=== PATIENT | male | born 1995 | race Caucasian/White ===

== ENCOUNTER → 2023-03-28 | Outpatient (CLI) | payer OTHER, SELFPAY ==
[2023-03-28 15:25] LABS: Absolute Lymphocyte Count 2.09 X10^3/uL (0.83-4.51); Absolute Neutrophil Count 4.1 X10^3/uL (2.0-7.7); Basophil# 0.06 X10^3/uL; Basophil% 0.9 % (0-1); Eosinophil# 0.18 X10^3/uL; Eosinophils% 2.6 % (0-5); Hematocrit 47.2 % (40-54); Hemoglobin 15.9 g/dL (13.0-16.5); Lymphocyte # 2.09 X10^3/ul (0.83-4.51); Lymphocyte % 30.1 % (19-41); Mean Corp Hgb Conc 33.7 g/dL (32-36); Mean Corpuscular Hgb 30.2 pg (27.0-32.0); Mean Corpuscular Volume 89.6 fL (80-94); Mean Platelet Vol. 9.5 fl (6.2-12.0); Monocyte# 0.45 X10^3/uL; Monocyte% 6.5 % (0-10); NRBC Flagged by Analyzer 0 % (0-5); Neutrophil # 4.12 X10^3/uL (2.7-7.7); Neutrophil % 59.2 % (47-70); Platelet Count 301 K/mm3 (150-450); RBC Distribution Width CV 11.9 % (11.6-14.6); RBC Distribution Width SD 39.1 fl (35.1-43.9); Red Blood Count 5.27 M/mm3 (4.6-6.2)
[2023-03-28 15:53] LABS: AST(SGOT) 43 U/L (15-37); Alanine Aminotransfer ALT/SGPT 131 U/L (16-61); Albumin, Serum 4.1 g/dL (3.2-5.0); Alkaline Phosphatase 129 U/L (45-117); Anion Gap 4 (5-15); BUN 15 mg/dL (7-18); BUN/Creat Ratio 14.3 RATIO (10-20); Calcium,Total 9.7 mg/dL (8.5-10.1); Chloride 105 mmol/L (98-107); Creatinine, Serum 1.05 mg/dL (0.70-1.30); EST Glomerular Filtration Rate 90 mL/min (>60); Est Glom Filt Rate - Afr Amer 109 mL/min (>60); Glucose 98 mg/dL (74-106); Potassium 4.7 mmol/L (3.5-5.1); Protein, Total 8.1 g/dL (6.4-8.2); Sodium Level 138 mmol/L (136-145); Thyroid Stim Hormone (TSH) 1.09 uIU/mL (0.358-3.74)
[2023-03-28 18:15] LABS: Syphilis Antibodies Non-reactive
[2023-03-29 11:50] LABS: Ferritin 99 ng/mL (26-388); GGTP 91 U/L (15-85); Lipase 23 U/L (13-75)
[2023-03-29 13:16] LABS: Hepatitis C Antibody Non-Reactive (Nonreactive)
[2023-03-31 11:09] LABS: ANTINUCLEAR ANTIBODIES DIRECT Negative (Negative)
[2023-03-31 15:08] LABS: Endomysial Antibody IgA Negative (Negative); Immunoglobulin A 193 mg/dL (90-386); t-Transglutaminase IgA <2 U/mL (0-3)
== END | disposition home or self-care (01) ==
LOC: MFPLAB 11:58
PROVIDERS: PCP Family Medicine; Visit Provider Family Medicine
DX: R56.9 Unspecified convulsions (principal)
CPT/HCPCS: 36415; 80053; 82728; 82784; 82977; 83516; 83690; 84443; 85025; 86038; 86255; 86780; 86803

== ENCOUNTER → 2023-04-06 | Outpatient (CLI) | payer OTHER, SELFPAY ==
--- NOTE | 2023-04-06 07:23 | US_ITS ---
STUDY: ABDOMINAL ULTRASOUND - RIGHT UPPER QUADRANT REASON FOR VISIT: Male, 27 years old elevated LFTs TECHNIQUE: Ultrasound evaluation of the right upper quadrant was performed with real-time and static yarbrough-scale imaging. TECHNICAL QUALITY: Adequate. COMPARISON: None. FINDINGS: Liver: The liver measures 14.3 cm. There is increased echogenicity consistent with fatty infiltration. The bile ducts are within normal limits. There is hepatic color flow. The direction of portal flow is hepatopetal. There is no demonstrated mass lesion. Gallbladder: Normal distended gallbladder. The gallbladder wall measures 3 mm. There is a negative sonographic Thurman''s sign. There is no pericholecystic fluid. There are no gallstones. Common Bile Duct (C.B.D.): The common bile duct measures 3 mm. Pancreas: Normal size of the head, body and tail of the pancreas. There is normal echogenicity of the pancreas. There is no demonstrated pancreatic mass or cyst. Right Kidney: Normal size of the right kidney. The right kidney measures 10.7 x 5.8 x 5.4 cm. Normal renal cortex. The right cortex measures 1.7 cm. There is no demonstrated renal mass or cyst. There is no right hydronephrosis. US/Abdomen Limited IMPRESSION: Fatty liver, no discrete lesion Electronically Signed: Matias Shepherd MD at 11:05 EST ,
--- NOTE | 2023-04-06 07:34 | CT_ITS ---
STUDY: CT BRAIN WITH AND WITHOUT CONTRAST REASON FOR EXAM: Male, 27 years old. Migraine headache with possible seizure RADIATION DOSAGE (If Supplied By Facility): CTDIvol = ( 44.99 ) mGy, DLP = ( 1648.46 ) mGycm TECHNIQUE: Transaxial CT imaging of the brain was performed pre and post contrast administration. The examination was performed with intravenous administration of 50ML ISOVUE 370. Individualized dose optimization techniques were used for this CT. COMPARISON: None. FINDINGS: Normal soft tissue structures. Normal calvarium. Normal size ventricles and extra-axial spaces for the patient''s age. Normal white matter tracts of the cerebral hemispheres. Normal basal ganglia and thalami. Normal brainstem. Normal cerebellum. There is no intracranial hemorrhage. There are no findings of an acute ischemic infarction. Normal visualized paranasal sinuses. No suspicious enhancing lesion after contrast administration CT/Brain/Head W/WO Contrast IMPRESSION: Normal unenhanced and enhanced CT scan of the brain. Electronically Signed: Matias Shepherd MD at 8:26 EST ,
== END | disposition home or self-care (01) ==
LOC: CT 07:22
PROVIDERS: PCP Family Medicine; Referring Provider Family Medicine; Visit Provider Family Medicine
DX: R51.9 Headache, unspecified (principal); R56.9 Unspecified convulsions
CPT/HCPCS: 70470; 76705; Q9967

== ENCOUNTER → 2024-07-17 | Outpatient (CLI) | payer OTHER, SELFPAY ==
[2024-07-17 15:35] LABS: Hematocrit 45.3 % (40-54); Mean Corp Hgb Conc 35.3 g/dL (32-36); Mean Corpuscular Hgb 30.9 pg (27.0-32.0); Mean Corpuscular Volume 87.5 fL (80-94); Platelet Count 282 K/mm3 (150-450); RBC Distribution Width CV 12.1 % (11.6-14.6); RBC Distribution Width SD 38.5 fl (35.1-43.9); Red Blood Count 5.18 M/mm3 (4.6-6.2); White Blood Count 9.2 K/mm3 (4.4-11.0)
[2024-07-17 16:27] LABS: ALB/GLOB Ratio 1.2 RATIO (0.9-2.4); AST(SGOT) 48 U/L (15-37); Alanine Aminotransfer ALT/SGPT 85 U/L (16-61); Albumin, Serum 4.4 g/dL (3.2-5.0); Alkaline Phosphatase 107 U/L (45-117); Anion Gap 9 (5-15); BUN 10 mg/dL (7-18); BUN/Creat Ratio 10.5 RATIO (10-20); Calcium,Total 9.8 mg/dL (8.5-10.1); Chloride 105 mmol/L (98-107); Creatinine, Serum 0.96 mg/dL (0.70-1.30); EST Glomerular Filtration Rate 100 mL/min (>60); Est Glom Filt Rate - Afr Amer 121 mL/min (>60); Globulin 3.7 g/dL (2.2-4.2); Glucose 94 mg/dL (74-106); Magnesium 2.6 mg/dL (1.6-2.6); Potassium 4.3 mmol/L (3.5-5.1); Protein, Total 8.1 g/dL (6.4-8.2); Sodium Level 140 mmol/L (136-145); Thyroid Stim Hormone (TSH) 0.582 uIU/mL (0.358-3.740)
== END | disposition home or self-care (01) ==
LOC: MTLAB 12:48
PROVIDERS: PCP Family Medicine; Referring Provider Psychiatry & Neurology Neurology; Visit Provider Psychiatry & Neurology Neurology
DX: G40.909 Epilepsy, unspecified, not intractable, without status epilepticus (principal)
CPT/HCPCS: 36415; 80053; 83735; 84443; 85027

== ENCOUNTER → 2024-07-19 | Outpatient (CLI) | payer OTHER, SELFPAY | END | disposition home or self-care (01) | PROVIDERS: PCP Family Medicine; Referring Provider Family Medicine; Visit Provider Family Medicine | DX: R56.9 Unspecified convulsions (principal) | CPT/HCPCS: 95819 ==

== ENCOUNTER → 2025-02-03 | Outpatient (CLI) | payer OTHER, SELFPAY ==
[2025-02-03 19:02] LABS: Ammonia 13.7 umol/L (16-60)
[2025-02-03 19:46] LABS: AST(SGOT) 49 U/L (<=37); Alanine Aminotransfer ALT/SGPT 114 U/L (<=46); Albumin, Serum 4.7 g/dL (3.5-5.0); Alkaline Phosphatase 104 U/L (40-129); Anion Gap 14 (5-15); BUN 11 mg/dL (4-19); BUN/Creat Ratio 10.4 RATIO (10-20); Calcium,Total 10.1 mg/dL (7.6-11.0); Carbon Dioxide 25.6 mmol/L (21.0-32.0); Chloride 100 mmol/L (98-108); Globulin 2.7 g/dL (2.2-4.2); Glucose 93 mg/dL (70-99); Potassium 4.6 mmol/L (3.3-5.1)
--- OUTSIDE RECORDS SUMMARY | 2025-02-03 22:05 | XMS RPT_ITS | CCD ---
Author Organization [facility] Care Team Providers Care Director Of Construction Name Role Phone Dwight Corona Referring Unavailable Dwight Corona Attending Unavailable Gigi Dean Primary Care Unavailable Gigi Dean Referring Unavailable Gigi Dean Attending Unavailable Gigi Dean Primary Care Unavailable Dwight Corona Attending Unavailable Gigi Dean Referring Unavailable Gigi Dean Primary Care Unavailable Jermaine LIM, Dr. Yu Primary Care Provider Jermaine LIM, Dr. Yu Referring Provider Cj LIM, Dr. Quintanilla Attending Provider Cj LIM, Dr. Quintanilla Referring Provider Jermaine LIM, Dr. Yu Attending Provider [phone] Jermaine LIM, Dr. Yu Primary Care Provider Jermaine LIM, Dr. Yu Referring Provider Cj LIM, Dr. Quintanilla Attending Provider Cj LIM, Dr. Quintanilla Referring Provider [phone] Allergies Allergy Classification Reported Allergen(s) Allergy Type Date of Onset Reaction(s) Facility (3 sources) Amoxicillin Drug Allergy 10-07-2016 Vomiting [facility] (1 source) Amoxicillin Drug Allergy 07-17-2024 [facility] Repository Medications Current Medications Medication Drug Class(es) Dates Sig (Normalized) Sig (Original) cetirizine hydrochloride 10 mg oral tablet (1 source) Histamine-1 Receptor Antagonist Start: 02-03-2025 take 1 tablet by mouth once daily as needed Cetirizine (All Day Allergy (Cetirizine)) 10 mg tablet Active 10 mg PO daily as needed February 03, 2025 12:00am levETIRAcetam 500 mg oral tablet (3 sources) Start: 02-03-2025 take 1 tablet by mouth twice daily Levetiracetam 500 mg tablet Active 500 mg PO TWICE A DAY 60 5 February 03, 2025 3:01pm Start: 07-17-2024 End: 02-03-2025 take 0.5 tablet by mouth twice daily, then take 1 tablet by mouth twice daily Levetiracetam 500 mg tablet Discontinued 500 mg PO .COMPLEX 60 5 July 17, 2024 1:00am February 03, 2025 3:02pm Take 1/2 tablet orally twice daily for 2 days then 1 tablet twice daily thereafter. Completed/Discontinued Medications Medication Drug Class(es) Dates Sig (Normalized) Sig (Original) acetaminophen 325 mg / HYDROcodone bitartrate 5 mg oral tablet (3 sources) Opioid Agonist Start: 10-12-2016 End: 07-17-2024 Hydrocodone-Acetami nophen 1 TABLET tablet Discontinued 1 {tbl} PO EVERY 6 HOURS NEEDED as needed for Pain October 12, 2016 12:00am July 17, 2024 11:59am Start: 10-12-2016 take 1 tablet by maximo th every six hours as needed Hydrocodone-Acetaminophen Active 1 TABLE T PO EVERY 6 HOURS NEEDED October 11, 2016 11:00pm Problems Problem Classification Problem Date Documented Da te Episodic/Chronic Epilepsy; convulsions (5 sources) Epilepsy, unspecified, not intractable, without status epilepticus; Translations: [Epilepsy] Onset: 07-30-2024 07-17-2024 Chronic Epilepsy; convulsions (1 source) Unspecified convulsions; Translations: [Unspecified convulsions] Onset: 08-01-2024 Episodic Results Test Name Value Interpretation Reference Range Facility Albumin to globulin ratioOrd ered By: Dwight Corona on 07-17-2024 Albumin/Globulin [Mass ratio] 1.2 {ratio} 0.9-2.4 [facility] Bilirubin, totalOrdered By: Dwight Corona on 07-17-2024 Bilirubin [Mass/Vol] 1.40 mg/dL High 0.20-1.00 [facility] Comment on above: For patients on eltr ombopag therapy, use of Dimension [place] TBIL is not recommended. Blood urea nitrogen (BUN)/cr eatinine ratioOrdered By: Dwight Corona on 07-17-2024 Urea nitrogen/Creatinine [Mass ratio] 10.5 mg/mg 10-20 [facility] CBC-Complete Blood Cnt No Di ffon 07-17-2024 Erythrocyte distribution width (RBC) [Ratio] 12.1 % Normal 11.6-14.6 [facility] Comment on above: Performed By: #### L 501.5200, L501.9520, L100.0500, L500.4050 #### [facility] [address] [place], [address] Hematocrit (Bld) [Volume fraction] 45.3 % Normal 40-54 [facility] Comment on above: Performed By: #### L 501.5200, L501.9520, L100.0500, L500.4050 #### [facility] [address] [place], [address] Hemoglobin (Bld) [Mass/Vol] 16.0 g/dL Normal 13.0-16.5 [facility] Comment on above: Performed By: #### L 501.5200, L501.9520, L100.0500, L500.4050 #### [facility] [address] [place], [address] MCH (RBC) [Entitic mass] 30.9 pg Normal 27.0-32.0 [facility] Comment on above: Performed By: #### L 501.5200, L501.9520, L100.0500, L500.4050 #### [facility] [address] [place], [address] MCHC (RBC) [Mass/Vol] 35.3 g/dL Normal 32-36 [facility] Comment on above: Performed By: #### L 501.5200, L501.9520, L100.0500, L500.4050 #### [facility] [address] [place], [address] MCV (RBC) [Entitic vol] 87.5 fL Normal 80-94 [facility] Comment on above: Performed By: #### L 501.5200, L501.9520, L100.0500, L500.4050 #### [facility] [address] [place], [address] Platelet mean volume (Bld) [Entitic vol] 10.0 fL Normal 6.2-12.0 [facility] Comment on above: Performed By: #### L 501.5200, L501.9520, L100.0500, L500.4050 #### [facility] [address] [place], [address] Platelets (Bld) [#/Vol] 282 10*3/uL Normal 150-450 [facility] Comment on above: Performed By: #### L 501.5200, L501.9520, L100.0500, L500.4050 #### [facility] [address] [place], [address] RBC (Bld) [#/Vol] 5.18 10*6/uL Normal 4.6-6.2 [facility] Comment on above: Performed By: #### L 501.5200, L501.9520, L100.0500, L500.4050 #### [facility] [address] [place], [address] RDW SD 38.5 fl Normal 35.1-43.9 [facility] Comment on above: Performed By: #### L 501.5200, L501.9520, L100.0500, L500.4050 #### [facility] [address] [place], [address] WBC (Bld) [#/Vol] 9.2 10*3/uL Normal 4.4-11.0 [facility] Comment on above: Performed By: #### L 501.5200, L501.9520, L100.0500, L500.4050 #### [facility] [address] [place], [address] Carbon dioxide measurementOr dered By: Dwight Corona on 07-17-2024 CO2 [Moles/Vol] 26.0 mmol/L 21.0-32.0 [facility] Chloride measurementOrdered By: Dwight Corona on 07-17-2024 Chloride [Moles/Vol] 105 mmol/L 98-107 [facility] Comprehensive Metabolic Prof ilon 07-17-2024 Albumin [Mass/Vol] 4.4 g/dL Normal 3.2-5.0 [facility] Comment on above: Performed By: #### L 501.5200, L501.9520, L100.0500, L500.4050 #### [facility] [address] [place], [address] Albumin/Globulin [Mass ratio] 1.2 {ratio} Normal 0.9-2.4 [facility] Comment on above: Performed By: #### L 501.5200, L501.9520, L100.0500, L500.4050 #### [facility] [address] [place], [address] ALK P 107 U/L Normal 45-117 [facility] Comment on above: Performed By: #### L 501.5200, L501.9520, L100.0500, L500.4050 #### [facility] [address] [place], [address] ALT [Catalytic activity/Vol] 85 U/L High 16-61 [facility] Comment on above: Performed By: #### L 501.5200, L501.9520, L100.0500, L500.4050 #### [facility] [address] [place], [address] AST [Catalytic activity/Vol] 48 U/L High 15-37 [facility] Comment on above: Performed By: #### L 501.5200, L501.9520, L100.0500, L500.4050 #### [facility] [address] [place], [address] Bilirubin [Mass/Vol] 1.40 mg/dL High 0.20-1.00 [facility] Comment on above: Result Comment: For patients on eltrombopag therapy, use of Dimension [place] TBIL is not recommended. Performed By: #### L 501.5200, L501.9520, L100.0500, L500.4050 #### [facility] [address] [place], [address] BUN/CRE 10.5 RATIO Normal 10-20 [facility] Comment on above: Performed By: #### L 501.5200, L501.9520, L100.0500, L500.4050 #### [facility] [address] [place], [address] CA,Total 9.8 mg/dL Normal 8.5-10.1 [facility] Comment on above: Performed By: #### L 501.5200, L501.9520, L100.0500, L500.4050 #### [facility] [address] [place], [address] Chloride [Moles/Vol] 105 mmol/L Normal 98-107 [facility] Comment on above: Performed By: #### L 501.5200, L501.9520, L100.0500, L500.4050 #### [facility] [address] [place], [address] CO2 [Moles/Vol] 26.0 mmol/L Normal 21.0-32.0 [facility] Comment on above: Performed By: #### L 501.5200, L501.9520, L100.0500, L500.4050 #### [facility] [address] [place], [address] Creatinine [Mass/Vol] 0.96 mg/dL Normal 0.70-1.30 [facility] Comment on above: Result Comment: The validity of the calculated GFR GFRAA in patients over 70 years has not been determined. Clinical correlation is essential. Performed By: #### L 501.5200, L501.9520, L100.0500, L500.4050 #### [facility] [address] [place], [address] EST GFR - AA 121 mL/min Normal >60 [facility] Comment on above: Result Comment: Afri can Samoan GFR Calc Performed By: #### L 501.5200, L501.9520, L100.0500, L500.4050 #### [facility] [address] [place], [address] GAP 9 Normal 5-15 [facility] Comment on above: Performed By: #### L 501.5200, L501.9520, L100.0500, L500.4050 #### [facility] [address] [place], [address] GFR/1.73 sq M.predicted among non-blacks MDRD (S/P/Bld) [Vol rate/Area] 100 mL/min/{1.73_m2} Normal >60 [facility] Comment on above: Result Comment: Non- GFR Calc Performed By: #### L 501.5200, L501.9520, L100.0500, L500.4050 #### [facility] [address] [place], [address] Globulin (S) [Mass/Vol] 3.7 g/dL Normal 2.2-4.2 [facility] Comment on above: Performed By: #### L 501.5200, L501.9520, L100.0500, L500.4050 #### [facility] [address] [place], [address] Glucose [Mass/Vol] 94 mg/dL Normal 74-106 [facility] Comment on above: Performed By: #### L 501.5200, L501.9520, L100.0500, L500.4050 #### [facility] [address] [place], [address] Potassium [Moles/Vol] 4.3 mmol/L Normal 3.5-5.1 [facility] Comment on above: Performed By: #### L 501.5200, L501.9520, L100.0500, L500.4050 #### [facility] [address] [place], [address] Sodium [Moles/Vol] 140 mmol/L Normal 136-145 [facility] Comment on above: Performed By: #### L 501.5200, L501.9520, L100.0500, L500.4050 #### [facility] [address] [place], [address] T PROT 8.1 g/dL Normal 6.4-8.2 [facility] Comment on above: Performed By: #### L 501.5200, L501.9520, L100.0500, L500.4050 #### [facility] [address] [place], [address] Urea nitrogen [Mass/Vol] 10 mg/dL Normal 7-18 [facility] Comment on above: Performed By: #### L 501.5200, L501.9520, L100.0500, L500.4050 #### [facility] [address] [place], [address] Erythrocyte distribution wid th ratioOrdered By: Dwight Corona on 07-17-2024 Erythrocyte distribution width (RBC) [Ratio] 12.1 % 11.6-14.6 [facility] Erythrocyte distribution wid th standard deviationOrdered By: Dwight Corona on 07-17-2024 Erythrocyte distribution width (RBC) [Entitic vol] 38.5 fL 35.1-43.9 [facility] Estimated glomerular filtrat ion rate (GFR) AmericanOrdered By: Dwight Corona on 07-17-2024 Estimated GFR (MDRD) Amer 121 mL/min >60 [facility] Comment on above: GFR Calc Glomerular filtration rate ( GFR) estimationOrdered By: Dwight Corona on 07-17-2024 Estimated GFR (MDRD) Non-Af Amer 100 mL/min >60 [facility] Comment on above: Non- GFR Calc Glucose measurementOrdered B y: Dwight Corona on 07-17-2024 Glucose [Mass/Vol] 94 mg/dL 74-106 [facility] Hematocrit Auto (Bld) [Volum e fraction]Ordered By: Dwight Corona on 07-17-2024 Hematocrit (Bld) [Volume fraction] 45.3 % 40-54 [facility] Hemoglobin measurementOrdere d By: Dwight Corona on 07-17-2024 Hemoglobin (Bld) [Mass/Vol] 16.0 g/dL 13.0-16.5 [facility] - Chemistry and C hemistry - challengeOrdered By: Dwight Corona on 07-17-2024 AST [Catalytic activity/Vol] 48 U/L High 15-37 [facility] MCV (mean corpuscular volume ) determinationOrdered By: Dwight Corona on 07-17-2024 MCV (RBC) [Entitic vol] 87.5 fL 80-94 [facility] Magnesiumon 07-17-2024 Magnesium [Mass/Vol] 2.6 mg/dL Normal 1.6-2.6 [facility] Comment on above: Performed By: #### L 501.5200, L501.9520, L100.0500, L500.4050 #### [facility] [address] [place], [address] Magnesium measurementOrdered By: Dwight Corona on 07-17-2024 Magnesium [Mass/Vol] 2.6 mg/dL 1.6-2.6 [facility] Mean corpuscular hemoglobin (MCH) determinationOrdered By: Dwight Corona on 07-17-2024 MCH (RBC) [Entitic mass] 30.9 pg 27.0-32.0 [facility] Mean corpuscular hemoglobin concentration (MCHC) determinationOrdered By: Dwight Corona on 07-17-2024 MCHC (RBC) [Mass/Vol] 35.3 g/dL 32-36 [facility] Mean platelet volume determi nationOrdered By: Dwight Corona on 07-17-2024 Platelet mean volume (Bld) [Entitic vol] 10.0 fL 6.2-12.0 [facility] Neurology Visit Reporton Neurology Visit Report [facility] [address], [address] [place] [address] OFFICE VISIT Date of Service: 07/17/24 MR#: [id number] Acct: [id number] Name: BETTINA WEBSTER Rep #: [id number] : 1995 Provider: Dr. Dwight florence MD Age/Sex: 29/M Location: [facility] Status: Signed with Addenda ADDENDUM by Dr. Dwight Corona MD on 07/17/24 at 1417 Addendum Addendum (07/17/2024): The patient's second generalized seizure was witnessed to last for 1 to 2 minutes. 07/17/24 1417 Date Dwight Corona MD cc: Dr. Gigi Dean MD * Signed HPI [facility] Chief Complaint: Establish Care Details: History: The patient is a 29-year-old right-handed male without significant past medical history who presents for evaluation of seizures. He has a history of excessive alcohol consumption and was drinking 3 to 4 cans of beer per day for a 2-year. Following a 1 week period of not drinking alcohol in 2022, he had a generalized clonic seizure without preceding aura. He had postictal confusion and lethargy. Apart from the possibility of alcohol withdrawal, apparently no other direct cause for his seizure was identified. A head CT was normal. Anticonvulsant therapy was not initiated at that time. He quit drinking alcohol in early 2023. He had a second generalized clonic seizure on 07/12/2024. He did not experience a preceding aura. He had postictal confusion and lethargy. He did not have tongue biting or urinary incontinence with either of his seizures. He had muscle soreness following his last seizure. He experienced a mild headache associated with his last seizure. He does not have any significant history of headaches otherwise. He did not have any vision change, hearing loss, dizziness, numbness or lateralizing weakness. He does not have any history of concussion or CAR PORTER infection. He does not have any significant history. He was not born prematurely. He was under some emotional stress during the time of his last seizure. No clear etiology is identified. Past Medical History: As above. There is no history of hypertension, diabetes mellitus, heart disease, lung disease, stroke, thyroid disease, cancer, renal disease, sleep apnea, or hyperlipidemia. Social History: He uses marijuana (he states his last use of marijuana was 1 month ago. There is no history of heroin, cocaine, or narcotic abuse. He has a history of excessive alcohol consumption. He drinks 3 to 4 cans of beer daily for 2 years. He quit drinking alcohol in early 2023. There is no history of smoking tobacco. He has a law degree. Family History: The patient's sister was born prematurely and has epilepsy. The patient's grandfather had a TIA. There is no family history of cerebral aneurysm. Review of Systems: As above. The patient has not had any recent fever, rash, weight change, chest pain, shortness of breath, gastrointestinal problems or urinary problems. He has depression. He denies anxiety or sleep disturbance. Physical Exam: General: Well-developed, well-nourished male in no acute distress. Neuro: The patient is awake and alert and responds appropriately; speech is fluent; language function is within normal limits Cranial nerves: PERRL, 4mm bilaterally; EOMI; visual contreras are full; visual acuity is 20/20 bilaterally; face is symmetrical; tongue is midline; there are no deficits to pinprick Cerebellar system: No nystagmus or dysmetria Deep tendon reflexes: +2 knees and ankles, +1 at the triceps bilaterally and right brachioradialis and absent at the left brachioradialis and biceps bilaterally; plantar responses are downward bilaterally Motor: Strength 5/5 in the biceps bilaterally, abductor pollicis brevis muscles bilaterally, first dorsal interosseous muscles bilaterally, quadriceps bilaterally and foot dorsiflexors bilaterally; no drift Sensory: There are no deficits to soft touch, vibration or pinprick Gait: Unremarkable; Romberg is negative HEENT: Normocephalic; atraumatic; tympanic membranes are clear Neck: No bruits Heart: Regular rhythm and rate Extremities: No cyanosis or edema; dorsalis pedis pulses are +2 bilaterally Supplemental Info CBC, CMP, JOSE, GGT, TSH (03/28/2023): AST 43 (high), ALT 131 (high), GGT 91 (high), alkaline phosphatase 129 (high) Head CT (04/06/2023): Normal unenhanced and enhanced CT scan of the brain. These images were reviewed on 07/17/2024. Assessment and Plan Assessment and Plan (1) Epilepsy: Status: Acute Orders: Orders Brain W/WO Contrast Today G40.909 - Epilepsy, unspecified, not intractable, without status epilepticus Thyroid Stim Hormone (TSH) Today G40.909 - Epilepsy, unspecified, not intractable, without status epilepticus Comprehensive Metabolic Profil Today G40.909 - Epilepsy, unspecified, not intractable, without status ep (more content not included)... Normal [facility] Platelet countOrdered By: Ra jean-pierre Corona on 07-17-2024 Platelets (Bld) [#/Vol] 282 10*3/uL 150-450 [facility] Potassium measurementOrdered By: Dwight oCrona on 07-17-2024 Potassium [Moles/Vol] 4.3 mmol/L 3.5-5.1 [facility] RBC Auto (Bld) [#/Vol]Ordere d By: Dwight Corona on 07-17-2024 RBC (Bld) [#/Vol] 5.18 10*6/uL 4.6-6.2 [facility] Serum anion gap measurementO rdered By: Dwight Corona on 07-17-2024 Anion gap [Moles/Vol] 9 mmol/L 5-15 [facility] Serum globulin measurementOr dered By: Dwight Corona on 07-17-2024 Globulin (S) [Mass/Vol] 3.7 g/dL 2.2-4.2 [facility] Serum or plasma alanine helm otransferase (ALT) measurementOrdered By: Dwight Corona on 07-17-2024 ALT [Catalytic activity/Vol] 85 U/L High 16-61 [facility] Serum or plasma albumin ramandeep urement (mass/volume)Ordered By: Dwight Corona on 07-17-2024 Albumin [Mass/Vol] 4.4 g/dL 3.2-5.0 [facility] Serum or plasma alkaline maryse sphatase measurementOrdered By: Dwight Corona on 07-17-2024 ALP [Catalytic activity/Vol] 107 U/L 45-117 [facility] Serum or plasma calcium ramandeep urement (mass/volume)Ordered By: Dwight Corona on 07-17-2024 Calcium [Mass/Vol] 9.8 mg/dL 8.5-10.1 [facility] Serum or plasma creatinine m easurement (mass/volume)Ordered By: Dwight Corona on 07-17-2024 Creatinine [Mass/Vol] 0.96 mg/dL 0.70-1.30 [facility] Comment on above: The validity of the calculated GFR & GFRAA in patients over 70 years has not been determined. Clinical correlation is essential. Serum or plasma urea nitroge n measurement (mass/volume)Ordered By: Dwight Corona on 07-17-2024 Urea nitrogen [Mass/Vol] 10 mg/dL 7-18 [facility] Sodium levelOrdered By: Aditya Corona on 07-17-2024 Sodium [Moles/Vol] 140 mmol/L 136-145 [facility] TSH QnOrdered By: Dwight farnsworth on 07-17-2024 Thyroid Stimulating Hormone (TSH) 0.582 uIU/mL 0.358-3.740 [facility] Thyroid Stim Hormone (TSH)on 07-17-2024 TSH 0.582 uIU/mL Normal 0.358-3.740 [facility] Comment on above: Performed By: #### L 501.5200, L501.9520, L100.0500, L500.4050 #### [facility] [place] [address] [place], [address] Total proteinOrdered By: Tyrel Corona on 07-17-2024 Protein [Mass/Vol] 8.1 g/dL 6.4-8.2 [facility] White blood cell (WBC) count Ordered By: Dwight Corona on 07-17-2024 WBC (Bld) [#/Vol] 9.2 10*3/uL 4.4-11.0 [facility] Absolute lymphocyte countOrd ered By: Gigi Dean on 03-28-2023 Lymphocytes Auto (Unsp spec) [#/Vol] 2.09 10*3/uL 0.83-4.51 [facility] Basophil percentageOrdered B y: Gigi Dean on 03-28-2023 Basophils/100 WBC (Bld) 0.9 % 0-1 [facility] Bilirubin [Mass/Vol] 0.70 mg/dL 0.20-1.00 [facility] Comment on above: For patients on eltr ombopag therapy, use of Dimension [place] TBIL is not recommended. Chloride [Moles/Vol] 105 mmol/L 98-107 [facility] Eosinophils/100 WBC (Bld) 2.6 % 0-5 [facility] Glucose [Mass/Vol] 98 mg/dL 74-106 [facility] Neutrophils (Bld) [#/Vol] 4.1 10*3/uL 2.0-7.7 [facility] Neutrophils/100 WBC (Bld) 59.2 % 47-70 [facility] Potassium [Moles/Vol] 4.7 mmol/L 3.5-5.1 [facility] Protein [Mass/Vol] 8.1 g/dL 6.4-8.2 [facility] Sodium [Moles/Vol] 138 mmol/L 136-145 [facility] WBC (Bld) [#/Vol] 7.0 10*3/uL 4.4-11.0 [facility] Blood erythrocytes count (nu mber/volume)Ordered By: Gigi Dean on 03-28-2023 RBC (Bld) [#/Vol] 5.27 10*6/uL 4.6-6.2 [facility] Blood hemoglobin measurement (mass/volume)Ordered By: Gigi Dean on 03-28-2023 Hemoglobin (Bld) [Mass/Vol] 15.9 g/dL 13.0-16.5 [facility] Blood lymphocytes/100 leukoc ytesOrdered By: Gigi Dean on 03-28-2023 Lymphocytes/100 WBC (Bld) 30.1 % 19-41 [facility] Blood monocytes/100 leukocyt esOrdered By: Gigi Dean on 03-28-2023 Monocytes/100 WBC (Bld) 6.5 % 0-10 [facility] Blood platelet mean volumeOr dered By: Gigi Dean on 03-28-2023 Platelet mean volume (Bld) [Entitic vol] 9.5 fL 6.2-12.0 [facility] Determination of erythrocyte mean corpuscular volume (MCV)Ordered By: Gigi Dean on 03-28-2023 MCV (RBC) [Entitic vol] 89.6 fL 80-94 [facility] Hematocrit Auto (Bld) [Volum e fraction]Ordered By: Gigi Dean on 03-28-2023 Hematocrit (Bld) [Volume fraction] 47.2 % 40-54 [facility] - Chemistry and C hemistry - challengeOrdered By: Gigi Dean on 03-28-2023 ALP [Catalytic activity/Vol] 129 U/L 45-117 [facility] ALT [Catalytic activity/Vol] 131 U/L 16-61 [facility] Amylase [Catalytic activity/Vol] 91 U/L 15-85 [facility] CO2 [Moles/Vol] 29.0 mmol/L 21.0-32.0 [facility] Globulin (S) [Mass/Vol] 4.0 g/dL 2.2-4.2 [facility] Lipase [Catalytic activity/Vol] 23 U/L 13-75 [facility] Comment on above: Please note:LIPASE r evised reference range effective 22. New Lipase methodology. Expected to produce lower values than the previous assay method. NEW Reference Range: 13 - 75 U/L Urea nitrogen/Creatinine [Mass ratio] 14.3 mg/mg 10- [facility] Laboratory - Hematology and Cell countsOrdered By: Gigi Dean on 03-28-2023 Erythrocyte distribution width (RBC) [Entitic vol] 39.1 fL 35.1-43.9 [facility] Erythrocyte distribution width (RBC) [Ratio] 11.9 % 11.6-14.6 [facility] Immature granulocytes/100 WBC (Bld) 0.700 % 0.0-0.9 [facility] Comment on above: IG% - Immature Granu locytes (promyelocytes, myelocytes and metamyelocytes) > 1% indicates that a LEFT SHIFT is Present. MCH (RBC) [Entitic mass] 30.2 pg 27.0-32.0 [facility] Nucleated RBC/100 WBC (Bld) [Ratio] 0 % 0-5 [facility] MCHC Auto (RBC) [Mass/Vol]Or dered By: Gigi Dean on 03-28-2023 MCHC (RBC) [Mass/Vol] 33.7 g/dL 32- [facility] No Panel InformationOrdered By: Gigi Dean on 03-28-2023 Anti-Nuclear Antibody Screen Negative Negative [facility] Comment on above: Performed at: [facility] [employer] [place] [id number] Director: Adams Gaffney PhD, Phone: [phone] Endomysial IgA Antibody Negative Negative [facility] Estimated GFR (MDRD) Amer 109 mL/min >60 [facility] Comment on above: GFR Calc Estimated GFR (MDRD) Non-Af Amer 90 mL/min >60 [facility] Comment on above: Non- GFR Calc Hepatitis C Antibody Non-Reactive Nonreactive [facility] Comment on above: Non Reactive: < 0.8 Equivocal: >/= 0.8 to < 1.0 Reactive: >/= 1.0The CDC recommends that a reactive/equivocal HCV antibody result be followed up by the HCV Nucleic Acid Amplificationtest (812994) Thyroid Stimulating Hormone (TSH) 1.09 uIU/mL 0.358-3.74 [facility] Platelets bldOrdered By: Amanda Dean on 03-28-2023 Platelets (Bld) [#/Vol] 301 10*3/uL 150-450 [facility] Serum IgA measurement (units /volume)Ordered By: Gigi Dean on 03-28-2023 IgA Qn (S) 193 mg/dL 90-386 [facility] Comment on above: Performed at: [address] [id number] Director: Adams Gaffney PhD, Phone: [phone] Serum Treponema species anti body detectionOrdered By: Gigi Dean on 03-28-2023 Treponema sp Ab Ql (S) Non-Reactive [facility] Serum or plasma albumin ramandeep urement (mass/volume)Ordered By: Gigi Dean on 03-28-2023 Albumin [Mass/Vol] 4.1 g/dL 3.2-5.0 [facility] Serum or plasma albumin/glob ulin mass ratioOrdered By: Gigi Dean on 03-28-2023 Albumin/Globulin [Mass ratio] 1.0 {ratio} 0.9-2.4 [facility] Serum or plasma calcium ramandeep urement (mass/volume)Ordered By: Gigi Dean on 03-28-2023 Calcium [Mass/Vol] 9.7 mg/dL 8.5-10.1 [facility] Serum or plasma creatinine m easurement (mass/volume)Ordered By: Gigi Dean on 03-28-2023 Creatinine [Mass/Vol] 1.05 mg/dL 0.70-1.30 [facility] Comment on above: The validity of the calculated GFR & GFRAA in patients over 70 years has not been determined. Clinical correlation is essential. Serum or plasma ferritin kevin surement (mass/volume)Ordered By: Gigi Dean on 03-28-2023 Ferritin [Mass/Vol] 99 ng/mL 26-388 [facility] Serum or plasma urea nitroge n measurement (mass/volume)Ordered By: Gigi Dean on 03-28-2023 Urea nitrogen [Mass/Vol] 15 mg/dL 7-18 [facility] Serum tissue transglutaminas e IgA antibody assay (units/volume)Ordered By: Gigi Dean on 03-28-2023 tTG IgA Qn (S) <2 U/mL 0-3 [facility] Comment on above: Negative 0 - 3 Weak Positive 4 - 10 Positive >10 Tissue Transglutaminase (tTG) has been identified as the endomysial antigen. Studies have demonstr- ated that endomysial IgA antibodies have over 99% specificity for gluten sensitive enteropathy. Thin prep Papanicolaou smear with manual screeningOrdered By: Gigi Dean on 03-28-2023 Thin prep Papanicolaou smear with manual screening 43 U/L 15-37 [facility] Thin prep Papanicolaou smear with manual screening 4 5-15 [facility] Vital Signs Date Time Vital Sign Value Performing Clinician Faci lity 02-03-2025 14:24-0400 Body height 172.[address] Gigi Dean MD Work Phone: [phone] [place] [address] 02-03-2025 14:24-0400 Body mass index (BMI) [Ratio] 28.6 kg/m2 Dr. Gigi Dean MD Work Phone: [phone] [address] 02-03-2025 14:24-0400 Body temperature 98.6 [degF] Dr. Gigi Dean MD Work Phone: [phone])[phone] [place] [address] 02-03-2025 14:24-0400 Body weight 85.[address] Gigi Dean MD Work Phone: 1([phone])[phone] [place] [address] 02-03-2025 14:24-0400 Diastolic blood pressure 78 mm[Hg] Dr. Gigi Dean MD Work Phone: 2([phone])[phone] [place] [address] 02-03-2025 14:24-0400 Heart rate 63 /min Dr. Gigi Dean MD Work Phone: [facility] 02-03-2025 14:24-0400 Respiratory rate 16 /min Dr. Gigi Dean MD Work Phone: [facility] 02-03-2025 14:24-0400 SaO2% (BldA) [Mass fraction] 98 % Dr. Gigi Dean MD Work Phone: [facility] 02-03-2025 14:24-0400 Systolic blood pressure 124 mm[Hg] Dr. Gigi Dean MD Work Phone: 6([phone])[phone] [place] [address] 07-17-2024 10:54-0500 Body height 172.[address] Gigi Dean MD Work Phone: [facility] 07-17-2024 10:54-0500 Body mass index (BMI) [Ratio] 27.5 kg/m2 Dr. Gigi Dean MD Work Phone: [facility] 07-17-2024 10:54-0500 Body temperature 97.7 [degF] Dr. Gigi Dean MD Work Phone: [facility] 07-17-2024 10:54-0500 Body weight 82.[address] Gigi Dean MD Work Phone: [facility] 07-17-2024 10:54-0500 Diastolic blood pressure 84 mm[Hg] Dr. Gigi Dean MD Work Phone: [facility] 07-17-2024 10:54-0500 Heart rate 55 /min Dr. Gigi Dean MD Work Phone: [facility] 07-17-2024 10:54-0500 Respiratory rate 16 /min Dr. Gigi Dean MD Work Phone: [facility] 07-17-2024 10:54-0500 SaO2% (BldA) [Mass fraction] 99 % Dr. Gigi Dean MD Work Phone: [facility] 07-17-2024 10:54-0500 Systolic blood pressure 136 mm[Hg] Dr. Gigi Dean MD Work Phone: [facility] 03-28-2023 11:56-0400 Body height 169.55 cm [facility] Encounters Encounter Date Encounter Type Care Provider Facility Start: 02-03-2025 End: 02-03-[address] Gigi Dean MD Work Phone: -[facility] Start: 02-03-2025 End: 02-03-[address] Dwight Corona MD -[facility] Work Phone: Start: 07-19-2024 End: 07-19-[address] Gigi Dean MD Work Phone: [facility] Work Phone: Start: 07-19-2024 End: 07-19-[address] Gigi Dean MD -Pulmonary Services/Neurology Work Phone: Start: 07-19-2024 End: 07-19-2024 ambulatory Gigi Dean Facility:[facility] Start: 07-17-2024 End: 07-17-[address] Dwight Corona MD -Laboratory, [place] Work Phone: Start: 07-17-2024 End: 07-17-[address] Dwight Corona MD -[facility] Work Phone: Start: 07-17-2024 End: 07-17-2024 ambulatory [facility] Facility:[facility] Start: 07-17-2024 End: 07-17-2024 ambulatory [facility] Facility:[facility] Start: 03-28-2023 End: 03-28-2023 ambulatory [facility] Work Phone: Start: 03-28-2023 End: 03-28-2023 [facility] of Treatment Date Care Activity Detail Author Start: 02-03-2025 Blood ammonia measurement [facility] Start: 02-03-2025 Comprehensive metabo lic 2000 panel - Serum or Plasma [facility] Start: 02-03-2025 Measurement of substance [facility] Alanine aminotransfe rase [Enzymatic activity/volume] in Serum or Plasma [facility] Albumin [Mass/volume ] in Serum or Plasma [facility] Alkaline phosphatase [Enzymatic activity/volume] in Serum or Plasma [facility] Anion gap in Serum or Plasma [facility] Bilirubin, total measurement [facility] BUN/Creatinine ratio [facility] Calcium [Mass/volume ] in Serum or Plasma [facility] Carbon dioxide, tota l [Moles/volume] in Central venous blood [facility] Creatinine [Mass/vol ume] in Serum or Plasma [facility] Glucose [Mass/volume ] in Serum or Plasma [facility] Measurement of renal function [facility] MR Brain WO and W contrast IV [facility] Potassium measurement [facility] Serum chloride measurement [facility] Sodium measurement [facility] Total protein measurement [facility] Urea nitrogen [Mass/ volume] in Serum or Plasma [facility] Payers Date Payer Category Payer Self-pay 2016 Unknown [id number] Private Health Insurance [id number] Unknown [id number] Unknown [id number] Unknown [id number] Unknown [facility] PACKAGE PLAN [id number] Social History Date Type Detail Facility Start: 10-07-2016 Tobacco smoking stat us COIS Unknown if ever smoked [facility] Start: 1995 Sex Assigned At Male [facility] Start: 10-07-2016 End: 02-03-2025 Tobacco smoking status NHIS Never smoked tobacco (finding) [facility] Start: 08-01-2024 Sex Male (finding) [facility] Evaluation note 07-17-2024 Note Date & Type Note Facility 07-17-2024 Evaluation note Diagnosis Onset Date Resolution Epilepsy acute July 17, 2024 10:55am [facility] Work Phone: Evaluation note Note Date & Type Note Facility Evaluation note No assessment information availa ble [facility] Work Phone: Evaluation note Note Date & Type Note Facility Evaluation note Diagnosis Onset Date Resolution Epilepsy acute February 03, 2025 2:22pm [facility] Work Phone: Reason for referral (narrative) Note Date & Type Note Facility Reason for referral (narrative) No reason for referral information available [facility] Work Phone: Advance Directives Advance Directive Response Recorded Date/ Time Living Will No October 07, 2016 7 :51am Power of Broth Setter No October 07, 2016 7:51am Summary Purpose Family History No Family History Records Found Chief Complaint and Reason for Visit Chief Complaint Admit Date EPILEPSY July 17, 2024 10:55am [facility] July 17, 2024 12:47pm Unspecified convulsions July 19, 025 8:03am Reason for Visit Admit Date Epilepsy July 17, 2024 10:55am Chief Complaint Admit Date FOLLOW UP February 03, 2025 2:22pm [facility] February 03, 2025 3:13pm Reason for Visit Admit Date Epilepsy February 03, 2025 2:22pm Additional Source Comments Care Teams (unrecognized sec tion and content) Team Status: Active Member Role Status Dates Dr. Gigi Dean MD Family Provider Active Dr. Gigi Dean MD Primary Care Provider Active Team Status: Inactive Member Role Status Dates Dr. Gigi Dean MD Primary Care Provider, Attending Maris harper Active Team Status: Active Member Role Status Dates Dr. Gigi Dean MD Primary Care Provider Active Team Status: Inactive Member Role Status Dates Dr. Gigi Dean MD Primary Care Provider Active Start: July 17, 2024 End: July 17, 2024 Dr. Gigi Dean MD Referring Provider Active St art: July 17, 2024 End: July 17, 2024 Dr. Dwight Corona MD Attending Provider Active Start: July 17, 2024 End: July 17, 2024 Team Status: Inactive Member Role Status Dates Dr. Gigi Dean MD Primary Care Provider Active Start: July 17, 2024 End: July 17, 2024 Dr. Dwight Corona MD Attending Provider Active Start: July 17, 2024 End: July 17, 2024 Dr. Dwight Corona MD Referring Provider Active Start: July 17, 2024 End: July 17, 2024 Team Status: Inactive Member Role Status Dates Dr. Gigi Dean MD Primary Care Provider Active Start: July 19, 2024 End: July 19, 2024 Dr. Gigi Dean MD Attending Provider Active St art: July 19, 2024 End: July 19, 2024 Dr. Gigi Dean MD Referring Provider Active St art: July 19, 2024 End: July 19, 2024 Team Status: Active Member Role/Relationship Status Dates Dr. Gigi Dean MD Primary Care Provider Active Team Status: Inactive Member Role/Relationship Status Dates Dr. Gigi Dean MD Primary Care Provider Active Start: February 03, 2025 End: February 03, 2025 Dr. Gigi Dean MD Referring Provider Active St art: February 03, 2025 End: February 03, 2025 Dr. Dwight Corona MD Attending Provider Active Start: February 03, 2025 End: February 03, 2025 Team Status: Active Member Role/Relationship Status Dates Dr. Gigi Dean MD Primary Care Provider Active Start: February 03, 2025 Dr. Dwihgt Corona MD Attending Provider Active Start: February 03, 2025 Dr. Dwight Corona MD Referring Provider Active Start: February 03, 2025 Goals (unrecognized section and content) Goals may be documented in a n alternate sectionGoals may be documented in an alternate sectionGoals may be documented in an alternate section (unrecognized sect ion and content) No Status Records Found INFORMATION SOURCE (unrecogn ized section and content) DATE CREATED AUTHOR 08/03/2024 [facility] FOR RECORDS PERTAINING TO PATIENTS WHO ARE OR HAVE BEEN ENROLLED IN A CHEMICAL DEPENDENCY/SUBSTANCEABUSE PROGRAM, SOME INFORMATION MAY BE OMITTED. This clinical summary was aggregated from multiple sources. Caution should be exercised in using it in the provision of clinical care. This summary normalizes information from multiple sources, and as a consequence, information in this document may materially change the coding, format and clinical context of patient data. In addition, data may be omitted in some cases. CLINICAL DECISIONS SHOULD BE BASED ON THE PRIMARY CLINICAL RECORDS. [employer] provides no warranty or guarantee of the accuracy or completeness of information in this document.
[2025-02-06 16:09] LABS: KEPPRA (LEVETIRACETAM) 10.0 ug/mL (10.0-40.0)
== END | disposition home or self-care (01) ==
PROVIDERS: PCP Family Medicine; Referring Provider Psychiatry & Neurology Neurology; Visit Provider Psychiatry & Neurology Neurology
DX: G40.909 Epilepsy, unspecified, not intractable, without status epilepticus (principal)
CPT/HCPCS: 36415; 80053; 80177; 82140